=== PATIENT | male | born 1955 | race Caucasian/White ===

== ENCOUNTER → 2024-04-01 10:13 | Outpatient (REF) | payer MEDICARE, OTHER, SELFPAY | LOC: REG 10:13 | PROVIDERS: ATTENDING PHYSICIAN Specialist; FAMILY PHYSICIAN Internal Medicine | DX: Z12.5 Encounter for screening for malignant neoplasm of prostate (principal); R35.0 Frequency of micturition | CPT/HCPCS: 36415; 84153; 84154 ==